=== PATIENT | male | born 1980 ===

== ENCOUNTER 2018-08-27 20:31 | Inpatient (IN) | payer OTHER ==
--- NOTE | 2018-08-27 20:40 | C.PDOC ---
History Of Present Illness 38 year old male presents to the ED for evaluation of foreign object stuck in his rectum. Patient currently c/o abdominal pressure. Patient denies fever, chills, nausea, vomit, diarrhea, back pain, weakness, numbness. Pt tried unsuccessfully to self remove the foreign object. Time Seen by Provider: 08/27/18 20:39 Chief Complaint (Nursing): Abdominal Pain History Per: Patient History/Exam Limitations: no limitations Onset/Duration Of Symptoms: Hrs Current Symptoms Are (Timing): Still Present Location Of Pain/Discomfort: Diffuse Quality Of Discomfort: Pressure, "Pain" Associated Symptoms: denies: Nausea, Vomiting, Diarrhea, Urinary Symptoms Recent travel outside of the [place]: No Additional History Per: Patient Past Medical History Reviewed: Historical Data, Nursing Documentation, Vital Signs - Medical History PMH: No Chronic Diseases Surgical History: No Surg Hx Family History: States: Unknown Family Hx - Social History Hx Tobacco Use: No Hx Alcohol Use: No Hx Substance Use: No Review Of Systems Constitutional: Negative for: Fever, Chills Cardiovascular: Negative for: Chest Pain Respiratory: Negative for: Cough, Shortness of Breath Gastrointestinal: Positive for: Abdominal Pain, Rectal Pain. Negative for: Nausea, Vomiting, Diarrhea Genitourinary: Negative for: Dysuria, Hematuria Musculoskeletal: Negative for: Back Pain Skin: Negative for: Rash Neurological: Negative for: Weakness, Numbness Physical Exam - Physical Exam Appears: Non-toxic Skin: Warm, Dry Head: Normacephalic Eye(s): bilateral: Normal Inspection Gastrointestinal/Abdominal: Soft, Tenderness, No Guarding, No Rebound Rectal: Other (using speculum, unable to visualize the foreign object. bloody mucus seen.) Back: No CVA Tenderness Extremity: Bilateral: Atraumatic, Normal Color And Temperature, Normal ROM Neurological/Psych: Oriented x3, Normal Speech, Normal Cognition Gait: Steady ED Course And Treatment O2 Sat by Pulse Oximetry: 96 (ON RA) Pulse Ox Interpretation: Normal Disposition Discussed With : Laith Jules Comment: accepted the pt on his service and took over the care at 11PM Doctor Will See Patient In The: ED Counseled Patient/Family Regarding: Studies Performed, Diagnosis - Disposition Disposition: HOSPITALIZED Disposition Time: 20:39 Condition: FAIR Forms: [employer] (Greenlandic) - POA Present On Arrival: None - Clinical Impression Clinical Impression: Abdominal pain, Rectal foreign body - Scribe Statement The provider has reviewed the documentation as recorded by the Scribe Willy Oropeza All medical record entries made by the Scribe were at my direction and personally dictated by me. I have reviewed the chart and agree that the record accurately reflects my personal performance of the history, physical exam, medical decision making, and the department course for this patient. I have also personally directed, reviewed, and agree with the discharge instructions and disposition. Decision To Admit - Pt Status Changed To: Hospital Disposition Of: Inpatient - Admit Certification Admit to Inpatient:: After my assessment, the patient will require hospitalization for at least two midnights. This is because of the severity of symptoms shown, intensity of services needed, and/or the medical risk in this patient being treated as an outpatient. - InPatient: Physician Admission Certification:: After my assessment, the patient will require hospitalization for at least two midnights. This is because of the severity of symptoms shown, intensity of services needed, and/or the medical risk in this patient being treated as an outpatient. - . Bed Request Type: Regular Admitting Physician: Laith Jules Patient Diagnosis: Abdominal pain, Rectal foreign body
--- NOTE | 2018-08-27 23:09 | CP.PCM.HP ---
History of Present Illness - History of Present Illness History of Present Illness: General Surgery H&P For Dr. Hung This is a 38M with no PMH who presents to the ED after he was pleasuring himself using a phallic leisure device. The device previously had a handle which had been broken however he denies the presence of any sharp edges. 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 He reported trying to retreive the device. The ED physican reported blood/mucous on IVY and was unabel to visualize the device. The patinet reports mild lower abdominal pain. He denies any other concerning symptoms such as fevers, chills, sever abdominal pain, nausea or vomiting . PMH: Denies PSH: Laly Landy ALL: NKDA Social: Denies Vices Present on Admission - Present on Admission Any Indicators Present on Admission: No Review of Systems - Constitutional Constitutional: absent: Anorexia, Chills - EENT Eyes: absent: Blurred Vision, Change in Vision Ears: absent: Ear Pain, Tinnitus - Cardiovascular Cardiovascular: absent: Chest Pain, Dyspnea - Respiratory Respiratory: absent: Dyspnea, Dyspnea on Exertion - Gastrointestinal Gastrointestinal: Abdominal Pain. absent: Bloating, Loose Stools, Nausea, Vomiting - Musculoskeletal Musculoskeletal: absent: Arthralgias, Myalgias - Integumentary Integumentary: absent: Bleeding Lesions, Wounds Past Patient History - Past Social History Smoking Status: Light Smoker < 10 Cigarettes Daily - PSYCHIATRIC Hx Substance Use: No Meds Allergies/Adverse Reactions: Allergies Allergy/AdvReac Type Severity Reaction Status Date / Time No Known Allergies Allergy Verified 08/27/18 20:41 Physical Exam - Constitutional Appears: Non-toxic, No Acute Distress - Head Exam Head Exam: ATRAUMATIC, NORMOCEPHALIC - Eye Exam Eye Exam: EOMI - ENT Exam ENT Exam: Mucous Membranes Moist - Respiratory Exam Respiratory Exam: NORMAL BREATHING PATTERN - Cardiovascular Exam Cardiovascular Exam: +S1, +S2 - GI/Abdominal Exam GI & Abdominal Exam: Soft, Tenderness (Mild tenderness in suprapic region ). absent: Distended, Firm, Guarding, Hernia, Rigid - Rectal Exam Additional comments: No blood loose rectal tone, no forign body palpated - Extremities Exam Extremities exam: Positive for: normal capillary refill - Neurological Exam Neurological exam: Alert - Psychiatric Exam Psychiatric exam: Normal Affect, Normal Mood - Skin Skin Exam: Dry, Intact Results - Vital Signs Recent Vital Signs: Last Vital Signs Temp 99.1 F 08/27/18 20:45 Pulse 116 H 08/27/18 20:45 Resp 18 08/27/18 20:45 BP 148/94 H 08/27/18 20:45 Pulse Ox 96 08/27/18 22:16 - Labs Result Diagrams: 08/27/18 23:12 08/27/18 23:12 - Imaging and Cardiology CT scan - abdomen Status: Image reviewed by me, Report reviewed by me Assessment & Plan - Assessment and Plan (Free Text) Assessment: 38M with rectosigmoid foreign body NPO IVF OR in AM for removal D/W Dr. Dhara Sanz PGY3
[2018-08-27] MEDS ORDERED: Lactated Ringer's 1,000 ML IV SCH (23:15)
[2018-08-27 23:20] LABS: BASO % 0.4 % (0.0-2.0); EOS # 0.1 K/uL (0.0-0.7); EOS % 0.9 % (0.0-4.0); HEMOGLOBIN 17.3 g/dL (12.0-18.0); LYMPH # 1.3 K/uL (1.0-4.3); LYMPH % 10.8 % (20.0-40.0); MEAN CORPUSCULAR HEMOGLOBIN 30.3 pg (27.0-31.0); MEAN CORPUSCULAR HGB CONC 34.4 g/dL (33.0-37.0); MEAN PLATELET VOLUME 8.8 fL (7.2-11.7); MONO % 8.2 % (0.0-10.0); NEUT # 9.7 K/uL (1.8-7.0); NEUT % 79.7 % (50.0-75.0); NRBC % 0.1 % (0.0-2.0); RBC 5.7 Mil/uL (4.40-5.90); WHITE BLOOD COUNT 12.2 K/uL (4.8-10.8)
[2018-08-27 23:23] LABS: PROTHROMBIN TIME 10.5 SECONDS (9.7-12.2)
[2018-08-27 23:26] LABS: BLOOD UREA NITROGEN 11 mg/dL (9-20); CALCIUM 8.8 mg/dl (8.6-10.4); GFR NON-AFRICAN AMERICAN > 60
[2018-08-27 23:28] LABS: ALB/GLOB RATIO 1.4 (1.0-2.1); ALBUMIN 5.1 g/dL (3.5-5.0); ALT/SGPT 38 U/L (21-72); AST/SGOT 90 U/L (17-59)
[2018-08-28] MEDS ORDERED: DiphenhydrAMINE 50 mg/ml Inj IVP STA (03:26)
[2018-08-28 07:34] LABS: BASO # 0.1 K/uL (0.0-0.2); BASO % 0.8 % (0.0-2.0); EOS # 0.2 K/uL (0.0-0.7); EOS % 1.7 % (0.0-4.0); HEMOGLOBIN 17.2 g/dL (12.0-18.0); LYMPH # 2.6 K/uL (1.0-4.3); LYMPH % 24.8 % (20.0-40.0); MEAN CELL VOLUME 88.1 fL (80.0-94.0); MEAN CORPUSCULAR HEMOGLOBIN 30.7 pg (27.0-31.0); MEAN CORPUSCULAR HGB CONC 34.8 g/dL (33.0-37.0); MEAN PLATELET VOLUME 8.6 fL (7.2-11.7); MONO # 0.8 K/uL (0.0-0.8); MONO % 7.6 % (0.0-10.0); NEUT # 6.8 K/uL (1.8-7.0); NEUT % 65.1 % (50.0-75.0); NRBC % 0.1 % (0.0-2.0); RBC 5.6 Mil/uL (4.40-5.90); WHITE BLOOD COUNT 10.5 K/uL (4.8-10.8)
[2018-08-28 08:27] LABS: ALB/GLOB RATIO 1.6 (1.0-2.1); ALBUMIN 4.5 g/dL (3.5-5.0); ALT/SGPT 55 U/L (21-72); AST/SGOT 57 U/L (17-59); BLOOD UREA NITROGEN 13 mg/dL (9-20); CALCIUM 9.1 mg/dl (8.6-10.4); GFR NON-AFRICAN AMERICAN > 60
--- NOTE | 2018-08-28 09:52 | RAD ---
Chest x-ray single frontal view History: Preoperative evaluation. COMPARISON: 06/21/2012. Findings: Mild venous congestion. Right hilar prominence. Mild patchy increased markings at the left lung base. Small nodular density at the left lung base likely represents vessel on end. Tortuous aorta. Heart size within normal limits. Impression: Mild venous congestion. Right hilar prominence. Mild patchy increased markings at the left lung base. Small nodular density at the left lung base likely represents vessel on end. Tortuous aorta.
[2018-08-28] MEDS ORDERED: ceFAZolin 1 gm in NS 2 GM/200 ML BAG IVPB ONE (10:06)
[2018-08-28] MEDS ORDERED: Bupivacaine 0.25% 20 ML INJ IJ ONE (10:07)
[2018-08-28] MEDS ORDERED: Lidocaine/Epinephrine 1% 1:100000 10 ML IJ ONE (10:07)
[2018-08-28] MEDS ORDERED: Midazolam 2 MG/2 ML VIAL ONE (10:54)
[2018-08-28] MEDS ORDERED: Propofol 10 mg/ml Inj (20 ML) ONE ×2 (10:55→11:17)
[2018-08-28] MEDS ORDERED: metroNIDAZOLE IV 500 mg/100 ml 500 MG/100 ML BAG ONE (10:56)
[2018-08-28] MEDS ORDERED: Succinylcholine Chloride 20 mg/ml Syr (5 ml) IV ONE (11:17)
[2018-08-28] MEDS ORDERED: Rocuronium 10 mg/ml (5 ml) ONE (11:24)
--- NOTE | 2018-08-28 11:49 | PCM.SURG1 ---
Surgeon's Initial Post Op Note - Surgeon's Notes Surgeon: [employer] Representative: PGY4, Jorge SHETH Type of Anesthesia: General Endo Pre-Operative Diagnosis: Rectal foreign body Operative Findings: Rectal foreign body, no mucosal tear seen on rigid scope Post-Operative Diagnosis: Rectal foreign body Operation Performed: Exam under anesthesia, Removal of rectal foreign body, Rigid Proctosigmoidoscopy Specimen/Specimens Removed: Foreign body Estimated Blood Loss: EBL {In ML}: 0 Blood Products Given: N/A Drains Used: No Drains Post-Op Condition: Good Date of Surgery/Procedure: 08/28/18 Time of Surgery/Procedure: 10:50
--- NOTE | 2018-08-28 11:50 | RAD ---
Date of service: 08/27/2018 PROCEDURE: Radiographs of the chest and abdomen (obstructive series) HISTORY: foreign object COMPARISON: No prior. TECHNIQUE: AP radiograph of the chest, with upright and supine radiographs of the abdomen. FINDINGS: CHEST: Lungs: Clear. Cardiovascular: Normal size heart. No pulmonary vascular congestion. No aortic atherosclerotic calcification present Pleura: No pleural fluid. No pneumothorax. Other findings: None. ABDOMEN AND PELVIS: Bowel: Normal abdominal bowel gas pattern. Surgical clips in right upper quadrant status post cholecystectomy. There is a single surgical clip projecting over the lower sacrum. No radiopaque foreign body is identified. Free air: None. Bones: Unremarkable. Other findings: None. IMPRESSION: No radiopaque foreign body identified.
--- NOTE | 2018-08-28 11:58 | CT ---
Date of service: 08/28/2018 PROCEDURE: CT Abdomen and Pelvis without intravenous contrast HISTORY: Retained self stimulation device in rectum COMPARISON: 06/21/2012 TECHNIQUE: Without contrast.. Contrast dose: Radiation dose: Total exam DLP = 1372.48 mGy-cm. This CT exam was performed using one or more of the following dose reduction techniques: Automated exposure control, adjustment of the mA and/or kV according to patient size, and/or use of iterative reconstruction technique. FINDINGS: LOWER THORAX: Unremarkable. LIVER: Fatty infiltration of the liver GALLBLADDER AND BILE DUCTS: Gallbladder removed PANCREAS: Unremarkable. No gross lesion or ductal dilatation. SPLEEN: Unremarkable. ADRENALS: Unremarkable. No mass. KIDNEYS AND URETERS: Unremarkable. No hydronephrosis. No solid mass. VASCULATURE: Unremarkable. No aortic aneurysm. No aortic atherosclerotic calcification or mural plaque present. BOWEL: Unremarkable. No obstruction. No gross mural thickening. There is a retained self stimulation device in the rectosigmoid measuring 23 x 4.8 cm. There is no associated inflammatory change or evidence of perforation. The finding is best demonstrated on sagittal image 98 series 602. APPENDIX: Unremarkable. Normal appendix. PERITONEUM: Unremarkable. No free fluid. No free air. LYMPH NODES: Unremarkable. No enlarged lymph nodes. BLADDER: Unremarkable. REPRODUCTIVE: Unremarkable. BONES: No acute fracture. OTHER FINDINGS: The report concurs with the preliminary [facility] report IMPRESSION: There is a retained self stimulation device in the rectosigmoid measuring 23 x 4.8 cm. There is no associated inflammatory change or evidence of perforation
[2018-08-28] MEDS ORDERED: HYDROmorphone 0.5 mg/0.5 ml ISec IVP PRN (12:37)
[2018-08-28] MEDS ORDERED: Labetalol 25mg/5ml Syringe IVP ONE (12:45)
[2018-08-28] MEDS ORDERED: Labetalol 5mg/ml (4ml) IVP ONE (13:15)
[2018-08-28 16:49] VITALS: BP 132/79; PULSE 78; RESP 18; TEMP 97.8; O2SAT 95
[2018-08-28] MEDS ORDERED: Influenza Vaccine 60 MCG/0.5 ML SYR (3 yr & up) IM ONE (18:52)
[2018-08-28] MEDS ORDERED: Pneumococcal 23-Valent Vaccine IM ONE ×2 (18:52→19:00)
--- NOTE | 2018-08-28 21:00 | RAD ---
Date of service: 08/28/2018 HISTORY: S/P foreign body removal COMPARISON: CT scan same day FINDINGS: BOWEL: No obstruction. No free air. Nonspecific bowel gas pattern is noted more than likely related to ileus. Surgical clip is seen in the pelvis. Previously noted rectal foreign body has been removed. BONES: Normal. OTHER FINDINGS: Small calcifications are seen overlying the mid abdomen. IMPRESSION: No evidence of free intraperitoneal air after foreign body removal.
--- NOTE | 2018-08-29 04:19 | OP ---
PROCEDURE DATE: 08/28/2018 PREOPERATIVE DIAGNOSES: 1. Rectal foreign body. 2. Rectal pain. POSTOPERATIVE DIAGNOSES: 1. Rectal foreign body. 2. Rectal pain. PROCEDURES DONE: 1. Examination under anesthesia. 2. Removal of rectal foreign body. 3. Proctosigmoidoscopy. SURGEON: The procedure was done by , Dr. Jules. SPEECH COACH: JESSICA Tam and Ryan Michelle DO, PGY-4, resident. TYPE OF ANESTHESIA: General endotracheal tube anesthesia. ESTIMATED BLOOD LOSS: Around 10 mL. DRAIN: None. PATHOLOGY: The rectal foreign body was sent for the pathology. COMPLICATIONS: None. INTRAOPERATIVE FINDINGS: The patient had a rectal foreign body in the shape of rubber , and the rectal foreign body was completely removed, and there was no tear in the rectum as well as in the rectosigmoid junction was identified. DESCRIPTION OF PROCEDURE: On intraoperative steps, this is a 38-year-old male who was diagnosed with rectal foreign body and the patient was consented for removal of the rectal foreign body, possible laparoscopic exploration, possible colon resection and colostomy, and the patient was brought to the OR, placed supine on operating table. After induction of the anesthesia, the patient was placed in the lithotomy position. Perineal area was prepped and draped in usual sterile fashion, and examination under anesthesia was done. The first deep palpation, the part of the foreign body was identified. The Sue syringe was used to irrigate the rectum with multiple time, and the patient was placed in stiff reverse Trendelenburg position, and the foreign body appeared to have migrated in the mid rectum, and using the tenaculum, the foreign body was grabbed and it was removed completely. Now, the proctosigmoidoscopy was done to check for any tear or any injury to the rectosigmoid junction as well as to the rectum. There was no tear identified. There was no bleeding identified in the rectum, and the rectosigmoid junction appeared to be normal. There was no complications. Count of instrument and gauze was correct. The procedure was completed. The patient was extubated in OR and sent to the postanesthesia care unit in stable condition. Laith Jules MD
[2018-08-29] MEDS ORDERED: Pneumococcal 23-Valent Vaccine IM ONE (14:00)
[2018-08-29] MEDS ORDERED: Influenza Vaccine 60 MCG/0.5 ML SYR (3 yr & up) IM ONE (14:00)
== END 2018-08-28 19:10 | disposition home or self-care (01) ==
LOC: C.ER 20:31 → C.9E 23:00 → C.6T 23:25
PROVIDERS: ADMIT Surgery Surgical Critical Care; ATTEND Surgery Surgical Critical Care
PROC: 0DCP8ZZ Extirpation of Matter from Rectum, Via Natural or Artificial Opening Endoscopic (ICD-10-PCS; principal; 2018-08-28 13:00)
DX: T18.5XXA Foreign body in anus and rectum, initial encounter (principal); K62.89 Other specified diseases of anus and rectum; F17.210 Nicotine dependence, cigarettes, uncomplicated